=== PATIENT | female | born 1960 | race Caucasian/White ===

== ENCOUNTER 2020-07-15 12:57 | Outpatient (CLI) | payer OTHER ==
[2020-07-15 13:48] LABS: Estimated GFR-MDRD - POC Greater than 90
--- NOTE | 2020-07-17 08:16 | MRI ---
EXAM: MRI of the breasts without and with contrast HISTORY: Asymmetry seen on the craniocaudal view on mammography in the left breast COMPARISON: Mammogram and ultrasound 05/28/2020, mammograms 05/01/2020, 08/29/2018 TECHNIQUE: Multiplanar multisequence MR images were obtained of the breasts without and with IV contr ast. 3-D MIP reformats and contrast enhancement curves were generated on a [employer] workstation. FINDINGS: Heterogeneously dense breast parenchyma is seen. Minimal background parenchymal enhancement is seen. The asymmetry seen in the upper aspect of the breast at the 12:00 position on the diagnostic mammogra m represents focally asymmetric breast tissue. There is a 9 mm area of type I enhancement just anterior to the patient's left implant. This is in th e inferior aspect of the breast and likely corresponds to the abnormality seen on the diagnostic mammogram on the craniocaudal view. There is a 4 mm area of plateau type enhancement in the upper outer aspect the left breast. This is n ot appear to have a mammographic correlate. No axillary adenopathy is seen. No internal mammary lymph nodes are identified. The visualized liver is unremarkable. The visualized bones are unremarkable. IMPRESSION: There is a abnormal area of enhancement just anterior to the left breast implant which is in the lowe r aspect of the breast. However, this is a type I enhancement and may be benign. A second look ultrasound in the inferior aspect of the left breast at the 6:00 position should be performed to eval uate for an abnormality just anterior to the implant capsule. Additionally, there is a 4 mm area of abnormal enhancement in the upper outer left breast. An ultrasound should be performed of the upper o uter left breast. If no abnormality is seen, then a repeat MRI of the breast in 6 months is recommended to ensure stability. BI-RADS Category 0-incomplete; needs additional imaging evaluation. A second look ultrasound of the left breast at the 6:00 position and upper outer breast should be performed.
== END 2020-07-15 12:58 | disposition home or self-care (01) ==
LOC: BICMRI 12:57
PROVIDERS: ATTEND Internal Medicine Hematology & Oncology
DX: R92.0 Mammographic microcalcification found on diagnostic imaging of breast (principal); Z98.82 Breast implant status
CPT/HCPCS: 82565; A9577; C8908

== ENCOUNTER 2020-07-18 07:36 | Outpatient (CLI) | payer OTHER | END 2020-07-18 07:37 | disposition home or self-care (01) | LOC: BICULT 07:36 | PROVIDERS: ATTEND Internal Medicine Hematology & Oncology | DX: R92.8 Other abnormal and inconclusive findings on diagnostic imaging of breast (principal) ==

== ENCOUNTER 2022-08-10 14:27 | Outpatient (CLI) | payer OTHER | END 2022-08-10 14:28 | disposition home or self-care (01) | LOC: BICMAMMO 14:27 | PROVIDERS: ATTEND Internal Medicine | DX: M81.0 Age-related osteoporosis without current pathological fracture (principal); M85.89 Other specified disorders of bone density and structure, multiple sites | CPT/HCPCS: 77080 ==